=== PATIENT | male | born 1940 ===

== ENCOUNTER 2017-12-22 13:56 | Day surgery (SDC) | payer MEDICARE, OTHER ==
[~2017-12-22 13:56] MED LIST: Buffered Lidocaine 0.9% SYRIN* 5 ML/SYR SYRINGE INTRADERM ONE; Dexamethasone IV* 4 MG/ML 1 ML (4 MG) IV SLOW PU ONE; Famotidine IV* 10 MG/ML 2 ML (20 mg) IV ONE
[2017-12-22] MEDS ORDERED: Dexamethasone IV* 4 MG/ML 1 ML (4 MG) ONE (13:57)
[2017-12-22] MEDS ORDERED: Famotidine IV* 10 MG/ML 2 ML (20 mg) ONE (13:57)
[2017-12-22] MEDS ORDERED: ceFAZolin 2 GM PREMIX (*) 2 GM/50 ML BAG IVPB ONE (13:58)
[2017-12-22] MEDS ORDERED: Naloxone* 0.4 MG/ML 1 ML VIAL IV PRN (15:29)
[2017-12-22] MEDS ORDERED: Ondansetron INJ* 2 MG/ML VIAL IV PRN (15:29)
[2017-12-22] MEDS ORDERED: Acetaminophen TAB* 325 MG PO PRN (15:29)
[2017-12-22] MEDS ORDERED: fentaNYL* 50 MCG/ML 2 ML VIAL (100 MCG VIAL) IV PRN (15:29)
[2017-12-22] MEDS ORDERED: Midazolam* 1 MG/ML 2 ML VIAL (2 MG) ONE (15:40)
[2017-12-22] MEDS ORDERED: fentaNYL* 50 MCG/ML 2 ML VIAL (100 MCG VIAL) ONE (15:40)
[2017-12-22] MEDS ORDERED: Lidocaine 2% PF * 5 ML VIAL ONE (15:55)
[2017-12-22] MEDS ORDERED: Propofol* 10 MG/ML 20 ML BTL IV PUSH ONE (15:55)
[2017-12-22 17:28] VITALS: BP 124/78
== END 2017-12-22 17:39 | disposition home or self-care (01) ==
LOC: OR 13:56
PROVIDERS: ATTEND Plastic Surgery
DX: L92.8 Other granulomatous disorders of the skin and subcutaneous tissue (principal); E11.9 Type 2 diabetes mellitus without complications; Z79.84 Long term (current) use of oral hypoglycemic drugs; E78.5 Hyperlipidemia, unspecified; E03.9 Hypothyroidism, unspecified; D47.3 Essential (hemorrhagic) thrombocythemia; N18.9 Chronic kidney disease, unspecified; I12.9 Hypertensive chronic kidney disease with stage 1 through stage 4 chronic kidney disease, or unspecified chronic kidney disease; Z85.528 Personal history of other malignant neoplasm of kidney; K50.90 Crohn's disease, unspecified, without complications; K74.60 Unspecified cirrhosis of liver
CPT/HCPCS: 88304; J0690; J1100; J2250; J2704; J3010